=== PATIENT | male | born 1985 | race Caucasian/White ===

== ENCOUNTER 2018-11-14 19:28 | Emergency (ER) | payer OTHER ==
[~2018-11-14] VITALS: Ht 177.8 cm; Wt 115.7 kg
[~2018-11-14 19:28] MED LIST: ACETAMINOPHEN-1 EAC1 PO; FLAGYL500 MG PO; FLONASE 0.05%50 MCG NASAL; HYDROCODONE-AP1 EAC6 PO; IBUPROFEN 800800 M1 PO; KEFLEX500 MG PO; MIRALAX17 GM PO; NEXIUM40 MG PO; ZOFRAN ODT4 MG PO
[2018-11-14] MEDS ORDERED: PREDNISONE50 MG PO (21:08)
[2018-11-14] MEDS ORDERED: NASONEX17 GM NASAL (21:08)
[2018-11-14] MEDS ORDERED: PROAIR HFA8.5 GM INH (21:08)
[2018-11-14 21:27] VITALS: BP 138/105
--- NOTE | 2018-11-15 20:09 | EKG ---
[place] [address] ELECTROCARDIOGRAM REPORT Name: NEREYDA ROWELL Room: [facility]#: [id number] Admission: 11/14/18 Attend Phys: Discharge: 11/14/18 Date of : 81 Report #: [id number] THIS REPORT FOR: //name// [facility] ED Test Date: 2018-11-14 Test Time: 19:42:42 Pat Name: NEREYDA ROWELL Department: Room: Gender: M [employer]: JANICE : 1985 Requested By: Priscilla Martini Order Number: [id number] Daniel MD: Gadiel Hinojosa Measurements Intervals [place] Rate: 113 P: 33 [place]: 148 QRS: 34 QRSD: 84 T: 25 QT: 311 QTc: 427 Interpretive Statements Sinus tachycardia Low voltage, precordial leads No previous ECG available for comparison cannot exclude old anterior [place] Electronically Signed On 11-15-2018 20:09:13 CDT by Gadiel Hinojosa [email or web address] <ELECTRONICALLY SIGNED> By: Jacinto Hinojosa MD, [facility] 11/15/182008 41 41 Jacinto Hinojosa MD, FACC /EPI
== END 2018-11-14 21:28 | disposition home or self-care (01) ==
LOC: M.ERS 19:28
DX: J40 Bronchitis, not specified as acute or chronic (principal); Z98.890 Other specified postprocedural states

== ENCOUNTER 2020-06-04 13:44 | Emergency (ER) | payer OTHER ==
[~2020-06-04] VITALS: Ht 180.3 cm; Wt 134.3 kg
[~2020-06-04 13:44] MED LIST changes: +NASONEX17 GM NASAL; +PREDNISONE50 MG PO; +PROAIR HFA8.5 GM INH
[2020-06-04 14:06] LABS: ABSOLUTE BASOPHILS 0.1 thou/uL (0.0-0.2); ABSOLUTE EOSINOPHILS 0.3 thou/uL (0.0-0.7); ABSOLUTE LYMPHOCYTES 2.4 thou/uL (0.8-5.3); ABSOLUTE MONOCYTES 0.9 thou/uL (0.0-1.2); ABSOLUTE NEUTROPHILS 6.9 thou/uL (1.6-8.1); EOSINOPHILS 2.4 %; HEMATOCRIT 45.1 % (42.0-52.0); HEMOGLOBIN 15.2 gm/dL (14.0-18.0); LYMPHOCYTES 22.6 %; MCH 29.4 pg (26.0-34.0); MCHC 33.8 g/dL (28.0-37.0); MCV 86.8 fL (80.0-100.0); MONOCYTES 8.2 %; NUCLEATED RBCS 0 /100WBC; PLATELET COUNT* 194 thou/uL (150-400); POLYS 65.8 %; RBC 5.19 mil/uL (4.50-6.00); RDW-CV 14.5 % (10.5-14.5); WBC 10.4 thou/uL (4.0-11.0)
[2020-06-04 14:15] LABS: CALCIUM 8.5 mg/dL (8.5-10.1); CREATININE 0.9 mg/dL (0.6-1.3); POTASSIUM 4.1 mmol/L (3.5-5.1)
[2020-06-04 14:19] LABS: ALBUMIN 3.9 g/dL (3.4-5.0); TOTAL BILIRUBIN 0.5 mg/dL (<0.1-1.0); TOTAL PROTEIN 7.6 g/dL (6.4-8.2)
[2020-06-04 14:43] LABS: URINE BILIRUBIN NEGATIVE (Negative); URINE BLOOD TRACE (Negative); URINE CLARITY CLEAR; URINE COLOR YELLOW; URINE GLUCOSE-RANDOM NEGATIVE (Negative); URINE KETONES NEGATIVE (Negative); URINE LEUKOCYTES-REFLEX NEGATIVE (Negative); URINE NITRITE-REFLEX NEGATIVE (Negative); URINE PROTEIN NEGATIVE (Negative); URINE SPECIFIC GRAVITY 1.025 (1.005-1.030); URINE UROBILINOGEN 0.2 E.U./dl (0.2-1.0)
[2020-06-04] MEDS ORDERED: CIPROFLOXACIN500 M1 PO (15:20)
[2020-06-04] MEDS ORDERED: FLAGYL500 M1 PO (15:20)
[2020-06-04] MEDS ORDERED: NORCO5 PO (15:20)
[2020-06-04 15:46] VITALS: BP 123/80
== END 2020-06-04 15:47 | disposition home or self-care (01) ==
LOC: M.ERS 13:44
PROVIDERS: Physician Assistant
DX: K57.32 Diverticulitis of large intestine without perforation or abscess without bleeding (principal)